=== PATIENT | female | born 1960 | race Asian ===

== ENCOUNTER 2019-05-14 21:35 | Emergency (ER) | payer SELFPAY ==
[~2019-05-14] VITALS: Ht 165.1 cm; Wt 46.8 kg
[2019-05-14 23:50] VITALS: BP 127/68
== END 2019-05-14 23:50 | disposition home or self-care (01) ==
LOC: ED 21:35
DX: S71.152A Open bite, left thigh, initial encounter (principal); W54.0XXA Bitten by dog, initial encounter; Y93.89 Activity, other specified; Y92.89 Other specified places as the place of occurrence of the external cause; Y99.8 Other external cause status
CPT/HCPCS: 90715